=== PATIENT | male | born 1955 | race Caucasian/White ===

== ENCOUNTER 2018-02-06 10:57 | Observation (INO) | payer MEDICARE, OTHER ==
[~2018-02-06 10:57] MED LIST: BACITRACIN 50,000 UNIT VIAL ONE; DEXAMETHASONE SOD PHOS 4 MG/ML VIAL ONE; FENTANYL CITRATE/PF 250 MCG/5 ML INJ. ONE; HYDROmorphone HCL/PF 2 MG/ML VIAL ONE; LACTATED RINGERS 1,000 ML IV.SOLN IV ONE; LEVALBUTEROL HCL 1.25 MG/3 ML AMPUL.NEB NEB ONE; LIDOCAINE HCL 2% PF 100MG/5ML VIAL IJ ONE; NORMAL SALINE 1,000 ML IV.SOLN IV ONE; ONDANSETRON HCL/PF 4 MG/ 2ML VIAL ONE; PHENYLEPHRINE HCL 10 MG/1 ML ONE; PROPOFOL 200 MG/20 ML VIAL IV ONE; ROCURONIUM BROMIDE 10 MG/ML 5ML VIAL ONE; SEVOFLURANE 250 ML LIQUID IH ONE; SUGAMMADEX SODIUM 200 MG/2 ML VIAL IV ONE; THROMBIN (RECOMBINANT) 20,000 UNIT VIAL TP ONE; ceFAZolin SODIUM 1 GM VIAL ONE; ePHEDrine SULFATE 50 MG/1 ML IVP ONE
[2018-02-06] MEDS ORDERED: LACTATED RINGERS 1,000 ML IV ONE (11:13)
[2018-02-06] MEDS ORDERED: LEVALBUTEROL HCL 1.25 MG/3 ML AMPUL.NEB NEB ONE (12:24)
[2018-02-06] MEDS ORDERED: fentaNYL CITRATE/PF 100 MCG/2 ML INJ. ONE (16:02)
[2018-02-06] MEDS ORDERED: HYDROmorphone HCL/PF 1 MG/ML VIAL ONE (16:07)
[2018-02-06] MEDS ORDERED: ONDANSETRON HCL/PF 4 MG/ 2ML VIAL ONE (16:25)
[2018-02-06] MEDS ORDERED: ACETAMINOPHEN 325 MG TABLET PO PRN (17:51)
[2018-02-06] MEDS ORDERED: ONDANSETRON HCL 4 MG TAB.RAPDIS PO PRN (17:51)
[2018-02-06] MEDS ORDERED: KETOROLAC TROMETHAMINE 30 MG/1ML VIAL IVP PRN (17:51)
[2018-02-06] MEDS ORDERED: LEVALBUTEROL HCL 1.25 MG/3 ML AMPUL.NEB NEB PRN (17:51)
[2018-02-06] MEDS ORDERED: POTASSIUM CHLOR 20 MEQ D51/2NS 1,000 ML IV SCH (18:00)
--- NOTE | 2018-02-06 18:00 | History and Physical Report ---
History of Present Illnes - History of Present Illness Reason for Visit: Total disc replacements at C3/4 and C6/7 History of Present Illness: This is a 62 year old male with a history of neck pain and radicular symptoms who presented to Dr. Pastrana's office for evaluation. He had tried conservative measures, but had not had any relief of his symptoms. He discussed total disc replacement with Dr. Pastrana and that was performed earlier today. No intraoperative complications were encountered and he is admitted for pain relief, mobilization and supplemental oxygen due to postoperative hypoxia with oxygen saturations dropping into the 80s. It is of note that he is scheduled for surgery for spinal stenosis after the first of the year. - Past Medical History Cardiac: HTN Pulmonary: COPD PRESS CUTTER: CVA (x3) Psych: Depression Renal/: Other (Vitamin D deficiency) Endocrine: Hypothyroidism, obesity - Past Surgical History Past Surgical History: Other (Wrist surgery), Total Knee Replacement, Other (Bilateral open laminotomies and framinotomies L2, 3, 4) - Past Social History Smoke: 1 pack per day Alcohol: None Drugs: None Lives: With Family Domestic Violence: Negative - Health Maintenance Health Maintenance: Cholesterol Influenza Vaccine: Current for this Influenza Season Pneumonia Vaccine: Yes Resuscitation Status: Resusciation Status Resuscitation Status Full Code Review of Systems - Review of Systems Constitutional: negative: Fever Eyes: negative: pain ENT: Other (Neck pain). negative: Ear Pain Respiratory: Shortness of Breath. negative: Cough, Hemoptysis Cardiovascular: negative: Chest Pain Gastrointestinal: negative: Nausea, Vomiting Genitourinary: negative: Dysuria Musculoskeletal: Neck Pain Skin: negative: Rash, Lesions Neurological: Incoordination (sleepy due to anesthesia) - Medications/Allergies Allergies/Adverse Reactions: Allergies Allergy/AdvReac Type Severity Reaction Status Date / Time No Known Allergies Allergy Verified 02/06/18 17:35 Home Medications: Home Medications Cyclobenzaprine HCl 10 mg PO TID PRN 02/06/18 Duloxetine HCl [Cymbalta] 120 mg PO D 02/06/18 Gabapentin [Neurontin] 1,200 mg PO TID 02/06/18 Lisinopril 5 mg PO D 02/06/18 Magnesium Oxide [Magnesium] 500 mg PO TID 02/06/18 Meloxicam 15 mg PO D 02/06/18 Oxycodone HCl/Acetaminophen [Percocet 7.5/325] 1 tab PO QID PRN 02/06/18 amLODIPine BESYLATE [Norvasc] 10 mg PO 0900 02/06/18 Exam - Exam Vital Signs: Vital Signs (72 hours) 02/06/18 17:30 Temperature 97.5 F L Pulse Rate [ 97 H Left] Respiratory 18 Rate Blood Pressure 129/75 [Left Arm] O2 Sat by Pulse 91 L Oximetry General: Alert, Oriented to Person (but sleepy), Oriented to Place HEENT: Atraumatic, PERRLA Neck: No: Stridor, Rigidity Lungs: Prolonged Expiration, Decreased Air Movement Cardiovascular: Regular rate Murmur: No: Systolic Murmur, Diastolic Murmur Abdomen: Normal bowel sounds, Soft, No tenderness Genitourinary: No: Right Inguinal Hernia, Left Inguinal Hernia Male Genitourinary: No: Scrotal Edema Female Genitourinary: No: Other Integumentary: Normal, [place], Warm, Dry Extremities: No clubbing, No cyanosis, No edema Neurological: Normal speech Psych/Mental Status: Mental status NL Assessment/Plan - Assessment/Plan (1) Degenerative joint disease of cervical spine Status: Acute Current Visit: Yes Qualifiers: Spinal osteoarthritis complication: with myelopathy Qualified Code(s): M47.12 - Other spondylosis with myelopathy, cervical region Assessment: S/P disc replacement at C3/4 and C6/7 Plan: Ambulate pain control (2) COPD (chronic obstructive pulmonary disease) Status: Acute Current Visit: Yes Qualifiers: COPD type: emphysema Emphysema type: panlobular Qualified Code(s): J43.1 - Panlobular emphysema Assessment: Continue inhalers Supplemental oxygen to keep saturations over 90% (3) Hypertension Status: Acute Current Visit: Yes Qualifiers: Hypertension type: essential hypertension Qualified Code(s): I10 - Essential (primary) hypertension Assessment: Continue amlodipine and lisinopril (4) Hypothyroidism Status: Acute Current Visit: Yes Qualifiers: Hypothyroidism type: acquired Qualified Code(s): E03.9 - Hypothyroidism, unspecified Assessment: Continue levothyroxine at 50 mcg/day (5) Lumbar spinal stenosis Status: Acute Current Visit: Yes Assessment: Planned lumbar surgery with Dr. Pastrana after the first of the year. (6) Depression Status: Acute Current Visit: Yes Qualifiers: Depression Type: major depressive disorder Major depression recurrence: recurrent Active/Remission status: currently active Major depression episode severity: moderate Qualified Code(s): F33.1 - Major depressive disorder, recurrent, moderate Assessment: Continue duloxetine at 60 mg po qd (7) DVT prophylaxis Status: Acute Current Visit: Yes Assessment: SCDs are in place Heparin 5000 units sc q12h (8) Smoker Status: Acute Current Visit: Yes Assessment: Added 14 mg nicotine patch VTE Assessment - RISK FACTOR SCORE VTE RISK FACTOR SCORES: AGE OVER 60 YEARS, MAJOR SURGERY/ANESTHESIA TIME > 1 HOUR - RISK VTE MODERATE RISK: SCORE OF 2 (RISK PROXIMAL DVT 2-4%) PROPHYAXIS NEEDED (On SCDs and heparin)
[2018-02-06 18:45] VITALS: BMI 30.7
[2018-02-06] MEDS: LEVOTHYROXINE SODIUM 50 MCG TABLET PO SCH (19:16)
[2018-02-06] MEDS: DEXTROSE IV SCH ×2 (20:15)
[2018-02-06] MEDS: POTASSIUM CHLORIDE IV SCH ×2 (20:15)
[2018-02-06] MEDS: SOD CHLORD IV SCH ×2 (20:15)
[2018-02-06] MEDS ORDERED: GABAPENTIN 300 MG CAPSULE ONE (20:21)
[2018-02-06] MEDS: NICOTINE 14mg PATCH.TD24 TD SCH (20:27)
[2018-02-06] MEDS: DULoxetine HCL 30 MG CAPSULE.DR PO SCH (20:27)
[2018-02-06] MEDS: HYDROmorphone HCL 2 MG TABLET PO PRN (20:28)
[2018-02-06] MEDS: CYCLOBENZAPRINE HCL 5 MG TABLET PO SCH (20:28)
[2018-02-06] MEDS: MAGNESIUM OXIDE 400 MG TABLET PO SCH (20:28)
[2018-02-06] MEDS: GABAPENTIN 100 MG CAPSULE PO SCH (20:29)
[2018-02-06] MEDS: HEPARIN SODIUM 5000 UNIT/1 ML SQ SCH (20:45)
[2018-02-07] MEDS: oxyCODONE HCL 5 MG TABLET PO PRN ×3 (01:16→21:17)
[2018-02-07] MEDS: HYDROmorphone HCL 2 MG TABLET PO PRN (04:12)
[2018-02-07] MEDS: CEFAZOLIN SODIUM/DEXTROSE,ISO 1 GM/50 ML PIGGYBACK IV SCH ×2 (06:14→13:16)
[2018-02-07] MEDS: LEVOTHYROXINE SODIUM 50 MCG TABLET PO SCH (06:14)
[2018-02-07] MEDS ORDERED: LEVOTHYROXINE SODIUM 25 MCG TABLET PO SCH (07:00)
[2018-02-07 07:17] LABS: BASOPHILS % 0.5 (0.0-1.5); EOSINOPHILS % 0.9 % (0.0-6.8); MEAN CORPUSCULAR HEMOGLOBIN 28.9 pg (28.0-34.0); MONOCYTES % 5.9 % (0.0-11.0); NEUTROPHILS # 15.2 # k/uL (1.4-7.7)
[2018-02-07 07:27] LABS: eGFR (Non-African) > 60
[2018-02-07] MEDS: DEXTROSE IV SCH ×4 (08:52→23:05)
[2018-02-07] MEDS: POTASSIUM CHLORIDE IV SCH ×4 (08:52→23:05)
[2018-02-07] MEDS: SOD CHLORD IV SCH ×4 (08:52→23:05)
[2018-02-07] MEDS: amLODIPine BESYLATE 5 MG TABLET PO SCH (08:57)
[2018-02-07] MEDS: HEPARIN SODIUM 5000 UNIT/1 ML SQ SCH ×2 (08:57→21:23)
[2018-02-07] MEDS: NICOTINE 14mg PATCH.TD24 TD SCH (08:57)
[2018-02-07] MEDS: CYCLOBENZAPRINE HCL 5 MG TABLET PO SCH ×3 (08:57→17:35)
[2018-02-07] MEDS: MAGNESIUM OXIDE 400 MG TABLET PO SCH ×3 (08:57→17:35)
[2018-02-07] MEDS: LISINOPRIL 5 MG TABLET PO SCH (08:58)
[2018-02-07] MEDS: GABAPENTIN 100 MG CAPSULE PO SCH ×3 (08:59→17:35)
--- NOTE | 2018-02-07 11:26 | Inpatient Progress Note ---
Subjective - Required Recertification Statement I anticipate X number of days because-include discharge plan: 1 - Review of Systems Events since last encounter: Patient states that he will be driving himself home. As a result, he cannot be discharged to home today as it is less than 24 hours after general anesthesia. We discussed that he will have to be at least 6 hours without any pain medication before he can be discharged to drive himself home. He is also having some difficulty swallowing. He says that he cannot get his swallow to initiate. He was able to get down a small amount of water and some apple sauce. General: Denies: Chills, Night Sweats HEENT: Denies: Head Aches Pulmonary: Denies: Dyspnea Cardiovascular: Denies: Chest Pain, Palpitations Gastrointestinal: Denies: Nausea, Vomiting Genitourinary: Denies: Dysuria Musculoskeletal: Neck Pain Neurological: Weakness. Denies: Change in Speech Objective - Exam Vitals and I&O: Vital Signs Temp 98.5 F 02/07/18 08:37 Pulse 93 H 02/07/18 08:37 Resp 20 02/07/18 08:37 BP 165/92 02/07/18 08:37 Pulse Ox 95 02/07/18 08:37 Intake & Output 02/06/18 02/06/18 02/07/18 11:59 23:59 11:59 Intake Total 120 1080 Output Total 400 625 Balance -280 455 Weight 97.069 kg Intake: IV 960 Right AC space 960 Oral 120 120 Output: Urine 400 625 Other: Voiding Method Urinal Urinal # Voids 1 # Bowel Movements 0 General: Alert, Oriented to Person, Oriented to Place, Oriented to Time HEENT: Atraumatic, PERRLA Neck: Supple, No JVD, No thyromegaly, Other (Dressings are dry) Lungs: Prolonged Expiration, Decreased Air Movement Cardiovascular: Regular rate Abdomen: Normal bowel sounds, Soft Extremities: No clubbing, No cyanosis Skin: Normal, Bryce Neurological: Normal gait Psych/Mental Status: Mental status NL - Results Results: Laboratory Results WBC 18.60 K/ul (4.00-12.00) H 02/07/18 06:00 RBC 4.64 M/ul (3.90-5.20) 02/07/18 06:00 Hgb 13.4 g/dL (12.0-18.0) 02/07/18 06:00 Hct 40.4 % (37.0-53.0) 02/07/18 06:00 MCV 87.0 fl (80.0-100.0) 02/07/18 06:00 MCH 28.9 pg (28.0-34.0) 02/07/18 06:00 MCHC 33.1 g/dL (30.0-36.0) 02/07/18 06:00 RDW 13.5 % (11.3-14.3) 02/07/18 06:00 Plt Count 223 K/mm3 (130-400) 02/07/18 06:00 Neut % (Auto) 81.4 % (39.0-79.0) H 02/07/18 06:00 Lymph % (Auto) 11.3 % (16.0-50.0) L 02/07/18 06:00 [place] % (Auto) 5.9 % (0.0-11.0) 02/07/18 06:00 Eos % (Auto) 0.9 % (0.0-6.8) 02/07/18 06:00 Baso % (Auto) 0.5 (0.0-1.5) 02/07/18 06:00 Neut # (Auto) 15.2 # k/uL (1.4-7.7) H 02/07/18 06:00 Lymph # (Auto) 2.1 # k/uL (0.6-4.0) 02/07/18 06:00 [place] # (Auto) 1.1 # k/uL (0.0-0.9) H 02/07/18 06:00 Eos # (Auto) 0.2 # k/uL (0.0-0.6) 02/07/18 06:00 Baso # (Auto) 0.1 # k/uL (0.0-0.5) 02/07/18 06:00 Sodium 140 mmol/L (136-145) 02/07/18 06:00 Potassium 4.1 mmol/L (3.5-5.1) 02/07/18 06:00 Chloride 102 mmol/L (98-107) 02/07/18 06:00 Carbon Dioxide 26 mmol/L (22-30) 02/07/18 06:00 BUN 16 mg/dL (9-20) 02/07/18 06:00 Creatinine 0.60 mg/dL (0.66-1.25) L 02/07/18 06:00 Estimated Creat Clear 173 02/07/18 06:00 Est GFR ( Amer) > 60 (60-) 02/07/18 06:00 Est GFR (Non-Af Amer) > 60 (60-) 02/07/18 06:00 Glucose 117 mg/dL (74-106) H 02/07/18 06:00 Calcium 9.4 mg/dL (8.4-10.2) 02/07/18 06:00 Total Bilirubin 1.0 mg/dL (0.2-1.3) 02/07/18 06:00 AST 30 U/L (15-46) 02/07/18 06:00 ALT 15 U/L (13-69) 02/07/18 06:00 Alkaline Phosphatase 102 U/L (38-126) 02/07/18 06:00 Total Protein 7.8 g/dL (6.3-8.2) 02/07/18 06:00 Albumin 4.9 g/dL (3.5-5.0) 02/07/18 06:00 Assessment/Plan - Assessment/Plan (1) Degenerative joint disease of cervical spine Status: Acute Current Visit: Yes Qualifiers: Spinal osteoarthritis complication: with myelopathy Qualified Code(s): M47.12 - Other spondylosis with myelopathy, cervical region Assessment: S/P cervical disc replacement x 2 (2) COPD (chronic obstructive pulmonary disease) Status: Acute Current Visit: Yes Qualifiers: COPD type: emphysema Emphysema type: panlobular Qualified Code(s): J43.1 - Panlobular emphysema Assessment: With continued smoking Continue inhalers and Xopenex as needed (3) Hypertension Status: Acute Current Visit: Yes Qualifiers: Hypertension type: essential hypertension Qualified Code(s): I10 - Essential (primary) hypertension (4) Hypothyroidism Status: Acute Current Visit: Yes Qualifiers: Hypothyroidism type: acquired Qualified Code(s): E03.9 - Hypothyroidism, unspecified Assessment: Continue current dosage of levothyroxine (5) Lumbar spinal stenosis Status: Acute Current Visit: Yes (6) Depression Status: Acute Current Visit: Yes Qualifiers: Depression Type: major depressive disorder Major depression recurrence: recurrent Active/Remission status: currently active Major depression episode severity: moderate Qualified Code(s): F33.1 - Major depressive disorder, recurrent, moderate (7) DVT prophylaxis Status: Acute Current Visit: Yes (8) Smoker Status: Acute Current Visit: Yes Assessment: Continue patch (9) Dysphagia Status: Acute Current Visit: Yes Assessment: Postoperative Plan: ST to evaluate and treat
[2018-02-07] MEDS: DULoxetine HCL 30 MG CAPSULE.DR PO SCH (21:23)
[2018-02-08] MEDS: LEVOTHYROXINE SODIUM 50 MCG TABLET PO SCH (06:24)
[2018-02-08] MEDS: CYCLOBENZAPRINE HCL 5 MG TABLET PO SCH (08:03)
[2018-02-08] MEDS: NICOTINE 14mg PATCH.TD24 TD SCH (08:03)
[2018-02-08] MEDS: HEPARIN SODIUM 5000 UNIT/1 ML SQ SCH (08:03)
[2018-02-08] MEDS: MAGNESIUM OXIDE 400 MG TABLET PO SCH (08:04)
[2018-02-08] MEDS: LISINOPRIL 5 MG TABLET PO SCH (08:04)
[2018-02-08] MEDS: amLODIPine BESYLATE 5 MG TABLET PO SCH (08:04)
[2018-02-08] MEDS: GABAPENTIN 100 MG CAPSULE PO SCH (08:04)
[2018-02-08 11:18] VITALS: BP 156/91
--- NOTE | 2018-02-08 12:25 | Discharge Summary ---
Discharge Summary - Discharge Sumary History of Present Illness: This is a 62 year old male with a history of neck pain and radicular symptoms who presented to Dr. Pastrana's office for evaluation. He had tried conservative measures, but had not had any relief of his symptoms. He discussed total disc replacement with Dr. Pastrana and that was performed earlier today. No intraoperative complications were encountered and he is admitted for pain relief, mobilization and supplemental oxygen due to postoperative hypoxia with oxygen saturations dropping into the 80s. Additional Instructions: Patient has a speech evaluation due to c/o difficulty swallowing= (has improved)- cleared by speech therapy Condition at Discharge: Stable Home Medications: Ambulatory Orders Medication Instructions Recorded Cyclobenzaprine HCl 10 mg PO TID PRN 02/06/18 Duloxetine HCl [Cymbalta] 120 mg PO D 02/06/18 Gabapentin [Neurontin] 1,200 mg PO TID 02/06/18 Lisinopril 5 mg PO D 02/06/18 Magnesium Oxide [Magnesium] 500 mg PO TID 02/06/18 Meloxicam 15 mg PO D 02/06/18 Oxycodone HCl/Acetaminophen 1 tab PO QID PRN 02/06/18 [Percocet 7.5/325] amLODIPine BESYLATE [Norvasc] 10 mg PO 0900 02/06/18 Oxycodone HCl/Acetaminophen 1 - 2 tab PO Q4H PRN #84 tablet 02/07/18 [Percocet 7.5/325] Consultations this Visit: None Procedures this Visit: Other (S/P cervical disc replacement) Allergies/Adverse Reactions: Allergies Allergy/AdvReac Type Severity Reaction Status Date / Time No Known Allergies Allergy Verified 02/06/18 17:35 Discharge Summary: Patient will be discharged home- swelling to anterior neck has greatly decreased. He states that it is easier for him to swallow and he is able to tolerate food and meds. He was cleared by speech therapy and is able to swallow. He has not had any pain medication in the last 6 hrs since he will be driving. 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 He has been ambulating in the hallway and using incentive spirometer. He will continue home medications and follow up with surgeon and PCP as directed Hospital Course: Patient transitioned from IV to oral pain meds. Speech therapy consulted for difficulty swallowing (improved) - Final Diagnosis (1) S/P cervical disc replacement Problems: Swelling has improved, minimal redness, difficulty swallowing has improved. Tolerating oral pain meds and diet Right or Left: Right (2) COPD (chronic obstructive pulmonary disease) Problems: Stable on home meds- no respiratory issue during admission Right or Left: Right (3) Degenerative joint disease of cervical spine Problems: S/P cervical disc replacement Right or Left: Right (4) Depression Problems: Stable on home meds Right or Left: Right (5) Dysphagia Problems: Speech therapy eval completed- cleared- patient doing much better Right or Left: Right (6) Hypertension Problems: Controlled with home meds Right or Left: Right (7) Hypothyroidism Problems: Controlled with home meds Right or Left: Right (8) Lumbar spinal stenosis Problems: Controlled with home meds Right or Left: Right (9) Smoker Problems: Controlled with nicotine patch during hospitalization Right or Left: Right
--- NOTE | 2018-02-09 15:02 | Discharge Summary ---
DATE OF ADMISSION: February 06, 2018 DATE OF DISCHARGE: February 08, 2018 DIAGNOSES ON THIS HOSPITALIZATION: 1. Degenerative joint disease of the cervical spine. 2. Chronic obstructive pulmonary disease. 3. Hypertension. 4. Hypothyroidism. 5. Lumbar spinal stenosis. 6. Depression. 7. Smoker. SUMMARIZATION OF ADMISSION HISTORY AND PHYSICAL: This is 62-year-old male with a history of neck pain and radicular symptoms who presented to Dr. Pastrana's office for an evaluation. He tried conservative measures but has not had any relief in his symptoms. He discussed total disc replacement with Dr. Pastrana and that was performed on hospital day number 1. He did have some postoperative hypoxia; however, that had resolved by the next morning and even later that evening. He was on room air and oxygen saturations were in the mid-90s. He was able to ambulate without any significant difficulty. He did have a little bit of difficulty with dysphagia initially postoperatively, but other that, he was doing quite well. He was discharged to home then with continuation of all of his regular medications and in addition, also Percocet 7.5/325 mg 1 to 2 p.o. every 4 hours p.r.n. DISCHARGE INSTRUCTIONS: Follow up with Dr. Pastrana as scheduled. CONDITION ON DISCHARGE: He was discharged to home in improved condition. TEOFILO
== END 2018-02-08 11:10 | disposition home or self-care (01) ==
LOC: OPSURG 10:57 → SOUTH 17:20
PROVIDERS: ADMIT Family Medicine; ATTEND Family Medicine
DX: M48.02 Spinal stenosis, cervical region (principal); M50.21 Other cervical disc displacement, high cervical region; M50.223 Other cervical disc displacement at C6-C7 level; M25.78 Osteophyte, vertebrae
CPT/HCPCS: 22856; 22858; 80053; 85025; 92521; 92610; 93005; 97116; 97161; 97165; 97535; A9270; G0378; G8978; G8979; G8987; G8988; J0690; J1100; J1170; J1644; J1885; J2001; J2370; J2405; J2704; J3010; J3480; J3490; J7030; J7120; J7614; J2307; A4550; C1889; S5010